=== PATIENT | female | born 1985 | race Caucasian/White ===

== ENCOUNTER 2017-03-16 17:50 | Emergency (ER) | payer MEDICAID ==
[~2017-03-16] VITALS: Ht 162.6 cm; Wt 70.0 kg
[~2017-03-16 17:50] MED LIST: AZIT500T5 PO; CEFU500T PO; DOCU-138 PO; PREN1COM PO
[2017-03-16] MEDS ORDERED: SODIUM CHLORIDE 0.9% 500 ML IV ONE (19:30)
[2017-03-16] MEDS ORDERED: DIPHENHYDRAMINE 50MG/ML VIAL IV ONE (19:30)
[2017-03-16] MEDS ORDERED: KETOROLAC 15MG/ML VIAL IV ONE (19:30)
[2017-03-16] MEDS ORDERED: METOCLOPRAMIDE HCL 10MG/2ML VIAL IV ONE (19:30)
[2017-03-16 19:50] LABS: BASOPHILS % 0.8 % (0.0-2.0); EOSINOPHILS % 2.1 % (0.0-5.0); HEMATOCRIT. 37.5 % (36.0-48.0); HEMOGLOBIN. 12.5 g/dL (12.0-16.0); LYMPHOCYTES % 43.5 % (20.0-50.0); MEAN CORPUSCULAR HEMOGLOBIN 27.9 pg (28.0-32.0); MEAN CORPUSCULAR VOLUME 83.9 fL (81.0-99.0); MEAN PLATELET VOLUME 8.3 fl (7.4-10.4); MONOCYTES % 2.7 % (2.0-8.0); NEUTROPHILS % 50.9 % (40.0-76.0); PLATELET 224 x1000/uL (130-400); RED BLOOD CELL COUNT 4.47 mill/uL (4.2-5.4); RED CELL DISTRIBUTION WIDTH 15.3 % (11.6-14.6)
[2017-03-16 19:57] LABS: PROTHROMBIN TIME 10.5 sec (9.4-11.6)
[2017-03-16 20:07] LABS: CARBON DIOXIDE 24 mEq/L (21-32); CHLORIDE 111 mEq/L (98-107); TROPONIN I 0.07 ng/mL (0.00-0.04)
[2017-03-16] MEDS ORDERED: ASPIRIN 81MG TABLET PO ONE (22:00)
[2017-03-16 22:06] LABS: *BARBITURATES SCREEN URINE NEGATIVE (NEGATIVE); *BENZODIAZEPINES SCREEN URINE NEGATIVE (NEGATIVE); *COCAINE SCREEN URINE NEGATIVE (NEGATIVE); CANNABINOID URINE SCREEN NEGATIVE (NEGATIVE); METHADONE URINE SCREEN NEGATIVE (NEGATIVE); OPIATES URINE SCREEN NEGATIVE (NEGATIVE); PHENCYCLIDINE URINE SCREEN NEGATIVE (NEGATIVE)
[2017-03-16 22:09] LABS: *AMPHETAMINES SCREEN URINE PRESUMTIVE POSITIVE (NEGATIVE)
[2017-03-16 23:10] VITALS: BP 93/62
== END 2017-03-17 02:29 | disposition left against medical advice (07) ==
LOC: ER 18:00 → CANBEDREQ 03-17 07:02
DX: I11.0 Hypertensive heart disease with heart failure (principal); I50.9 Heart failure, unspecified; R55 Syncope and collapse; I42.0 Dilated cardiomyopathy; I25.10 Atherosclerotic heart disease of native coronary artery without angina pectoris; E83.51 Hypocalcemia; F19.10 Other psychoactive substance abuse, uncomplicated; Z72.0 Tobacco use; I25.2 Old myocardial infarction; Z90.49 Acquired absence of other specified parts of digestive tract; Z83.3 Family history of diabetes mellitus
CPT/HCPCS: 36415; 71010; 80053; 80305; 81025; 83880; 84484; 85025; 85610; 93005; 96361; 96374; 96375; 99285; J1885; J2765; J7040; Z7610

== ENCOUNTER 2017-05-15 16:46 | Emergency (ER) | payer MEDICAID ==
[~2017-05-15] VITALS: Ht 160 cm; Wt 91.0 kg
[2017-05-15 19:50] VITALS: BP 127/83
== END 2017-05-15 20:20 | disposition home or self-care (01) ==
LOC: ER 17:06
DX: J06.9 Acute upper respiratory infection, unspecified (principal); I11.0 Hypertensive heart disease with heart failure; I50.9 Heart failure, unspecified; I25.2 Old myocardial infarction; F15.10 Other stimulant abuse, uncomplicated
CPT/HCPCS: 71010; 99283

== ENCOUNTER 2017-09-13 15:05 | Emergency (ER) | payer MEDICAID ==
[~2017-09-13] VITALS: Ht 160 cm; Wt 89.0 kg
[~2017-09-13 15:05] MED LIST changes: +ASPI-1159 PO; +CARV3.1242 PO; +FURO-152 PO; +LISI2.5T47 PO
[2017-09-13 17:18] LABS: BASOPHILS % 0.4 % (0.0-2.0); EOSINOPHILS % 1.1 % (0.0-5.0); HEMATOCRIT. 40.9 % (36.0-48.0); HEMOGLOBIN. 14.4 g/dL (12.0-16.0); LYMPHOCYTES % 17.4 % (20.0-50.0); MEAN CORPUSCULAR HEMOGLOBIN 30.8 pg (28.0-32.0); MEAN CORPUSCULAR VOLUME 87.5 fL (81.0-99.0); MEAN PLATELET VOLUME 8.2 fl (7.4-10.4); MONOCYTES % 4.3 % (2.0-8.0); NEUTROPHILS % 76.8 % (40.0-76.0); PLATELET 217 x1000/uL (130-400); RED BLOOD CELL COUNT 4.68 mill/uL (4.2-5.4); RED CELL DISTRIBUTION WIDTH 14.5 % (11.6-14.6)
[2017-09-13 17:28] LABS: PARTIAL THROMBOPLASTIN TIME 25.4 sec (23.4-31.0); PROTHROMBIN TIME 10.7 sec (9.4-11.6)
[2017-09-13 17:29] LABS: CHLORIDE 106 mEq/L (98-107)
[2017-09-13 17:32] LABS: HCG SCREEN NEGATIVE
[2017-09-13 18:30] VITALS: BP 142/98
== END 2017-09-13 19:36 | disposition left against medical advice (07) ==
LOC: ER 15:05
DX: R07.9 Chest pain, unspecified (principal); R11.0 Nausea; I11.0 Hypertensive heart disease with heart failure; I50.9 Heart failure, unspecified; I25.2 Old myocardial infarction; F17.200 Nicotine dependence, unspecified, uncomplicated; F14.10 Cocaine abuse, uncomplicated; F12.10 Cannabis abuse, uncomplicated; F15.10 Other stimulant abuse, uncomplicated; Z79.82 Long term (current) use of aspirin
CPT/HCPCS: 36415; 71045; 80053; 83880; 84484; 84703; 85025; 85610; 85730; 93005; 99285; Z7610

== ENCOUNTER 2021-02-04 02:09 | Emergency (ER) | payer MEDICAID ==
[~2021-02-04] VITALS: Ht 160 cm; Wt 88.6 kg
[~2021-02-04 02:09] MED LIST changes: -ASPI-1159 PO; +ASPI-1160 PO; +ASPI-1497 PO; -AZIT500T5 PO; +CARV25TA47 MT; -CARV3.1242 PO; -CEFU500T PO; +FURO-151 MT; -FURO-152 PO; -LISI2.5T47 PO; +LOSA100T32 MT
[2021-02-04 02:20] VITALS: BP 134/83
[2021-02-04] MEDS ORDERED: TETANUS, DIPHTHERIA, PERTUSSIS VAC/PF 0.5ML (>7YR OLD) IM ONE (05:15)
[2021-02-04] MEDS ORDERED: ACETAMINOPHEN 325MG TABLET PO ONE (05:15)
[2021-02-04] MEDS ORDERED: BACITRACIN ZINC OINT UDPKT TOP ONE (05:15)
[2021-02-04] MEDS ORDERED: LIDOCAINE HCL/EPINEPHRINE 1%-EPI 1:100,000 20 ML VIAL INFIL ONE (05:15)
[2021-02-04] MEDS ORDERED: IBUPROFEN 400MG TABLET PO ONE (05:15)
[2021-02-04] MEDS ORDERED: ACET-2708 MT (05:51)
[2021-02-04] MEDS ORDERED: CEPH500C2 MT (05:51)
[2021-02-04] MEDS ORDERED: NAPR-1176 MT (05:51)
[2021-02-04] MEDS ORDERED: SULF1TAB48 MT (05:51)
== END 2021-02-04 06:21 | disposition home or self-care (01) ==
LOC: ER 02:09
DX: L02.211 Cutaneous abscess of abdominal wall (principal); F15.10 Other stimulant abuse, uncomplicated; I11.0 Hypertensive heart disease with heart failure; I50.9 Heart failure, unspecified; Z90.49 Acquired absence of other specified parts of digestive tract; Z98.890 Other specified postprocedural states; Z79.899 Other long term (current) drug therapy
CPT/HCPCS: 10060; 81025; 90471; 90715; 99284; A4217; J3490; Z7610